=== PATIENT | male | born 1985 | race African-American/Black ===

== ENCOUNTER 2017-05-21 05:37 | Emergency (ER) | payer SELFPAY ==
[2017-05-21 05:48] VITALS: BP 128/85; TEMP 97.7; O2SAT 95
[2017-05-21] MEDS ORDERED: NEO/POLY/HC OTIC SUSP 10 ML BTTL ONE (05:51)
--- NOTE | 2017-05-21 05:52 | ED.PDOC ---
History of Present Illness - General Chief Complaint: ENT Problem Stated Complaint: Right ear pain Time Seen by Provider: 05/21/17 05:46 Source: patient Exam Limitations: no limitations - History of Present Illness Initial Comments: Patient presents with right ear pain since this morning. He got water stuck in his ear after taking a shower then a friend at work threw some sand at him and he got some in the same ear. He tried to wash it out with a "wax burner" and "swimmers ear". The pain is in the external canal with no radiation. No fever. No associate sx. No recent URI. Timing/Duration: 1-3 hours Severity: mild Improving Factors: nothing Worsening Factors: nothing Associated Symptoms: denies symptoms Allergies/Adverse Reactions: Allergies Penicillins Allergy (Verified 05/05/16 08:43) Home Medications: Ambulatory Orders Jose/Poly/Hc Otic Susp [Cortisporin Otic Susp] 4 drop LEFT_EAR Q6H #10 days 05/05 Review of Systems - Review of Systems Constitutional: States: no symptoms reported EENTM: States: see HPI Respiratory: States: no symptoms reported Cardiology: States: no symptoms reported Gastrointestinal/Abdominal: States: no symptoms reported Genitourinary: States: no symptoms reported Musculoskeletal: States: no symptoms reported Skin: States: no symptoms reported Neurological: States: no symptoms reported Endocrine: States: no symptoms reported Hematologic/Lymphatic: States: no symptoms reported Past Medical History (General) - Patient Medical History Hx Seizures: No Hx Stroke: No Hx Dementia: No Hx Asthma: Yes Hx of COPD: No Hx Cardiac Disorders: No Hx Congestive Heart Failure: No Hx Pacemaker: No Hx Hypertension: No Hx Thyroid Disease: No Hx Diabetes: No Hx Gastroesophageal Reflux: No Hx Renal Disease: No Hx Cancer: No Hx of HIV: No Hx Hepatitis C: No Hx MRSA: No - Vaccination History Hx Tetanus, Diphtheria Vaccination: Yes Hx Influenza Vaccination: No Hx Pneumococcal Vaccination: No - Social History Hx Tobacco Use: Yes Hx Chewing Tobacco Use: No Hx Alcohol Use: No Hx Physical Abuse: No Hx Emotional Abuse: No Hx Suspected Abuse: No - Female History Patient : No Family Medical History - Family History Father Living Status: Still Living Hx Family Hypertension: Yes Hx Family Stroke: Yes Hx Cardiac Disease: Yes Physical Exam - Physical Exam General Appearance: Alert Ears, Nose, Throat: normal pharynx, other - Right ear has small purulence and erythema in the external canal. TM clear. Left TM clear. Neck: non-tender, full range of motion, supple Respiratory: chest non-tender, lungs clear Cardiovascular/Chest: regular rate, rhythm Gastrointestinal/Abdominal: normal bowel sounds, non tender, soft Progress - Progress Progress: 05/21/17 05:53 Patient given polymyxin/neomycin/HC 4gtt in right ear. Departure - Departure Clinical Impression: Otitis externa Disposition: Discharge to Home or Self Care Condition: Good Departure Forms: ED Discharge - Pt. Copy, Patient Portal Self Enrollment Diet: resume usual diet Activity: increase activity as tolerated Home Medications: Ambulatory Orders Jose/Poly/Hc Otic Susp [Cortisporin Otic Susp] 4 drop LEFT_EAR Q6H #10 days 05/05
[2017-05-21] MEDS ORDERED: NEO/POLY/HC OTIC SUSP 10 ML BTTL RIGHT_EAR ONE (05:56)
== END 2017-05-21 06:07 | disposition home or self-care (01) ==
LOC: ER 05:37
DX: H60.90 Unspecified otitis externa, unspecified ear (principal); J45.909 Unspecified asthma, uncomplicated; Z87.891 Personal history of nicotine dependence; Z88.0 Allergy status to penicillin